=== PATIENT | female | born 1995 | race African-American/Black ===

== ENCOUNTER → 2017-07-28 | Outpatient (CLI) | payer OTHER ==
--- NOTE | 2017-07-28 15:53 | REP ---
Clinical: injury/sprain. Technique: AP, lateral, bilateral oblique views left ankle. Findings: Mild swelling. No acute fracture or dislocation. Skeletal structures and joint spaces are intact and normal. Ankle mortise appears stable. No subcutaneous emphysema or radiodense foreign body. Small calcaneal heel spur. Impression: No fracture or dislocation. Mild swelling. Signed by Manuel Samuels MD 07/28/2017 03:45 P
--- NOTE | 2017-07-28 16:09 | REP ---
Clinical: Trauma with pain. Technique: AP, bilateral oblique and sunrise views of the left knee. Findings: Very early spurring along the lateral femoral condyle and lateral patellar margin along with mild tibiofemoral joint space narrowing is suggested. No obvious acute fracture or dislocation. Impression: Minimal degenerative changes of lateral spurring. No definite fracture. Effusion cannot be excluded. Signed by Manuel Samuels MD 07/28/2017 03:59 P
== END ==
LOC: M LRY 14:48
PROVIDERS: ATTEND Physician Assistant
DX: S96.912A Strain of unspecified muscle and tendon at ankle and foot level, left foot, initial encounter (principal); W18.30XA Fall on same level, unspecified, initial encounter; Y92.009 Unspecified place in unspecified non-institutional (private) residence as the place of occurrence of the external cause

== ENCOUNTER → 2018-05-23 | Outpatient (REF) | payer OTHER | LOC: M SFHCLERA 19:48 | DX: R50.9 Fever, unspecified (principal) ==